=== PATIENT | male | born 1945 | race Caucasian/White ===

== ENCOUNTER 2019-10-17 23:20 | Inpatient (IN) ==
[2019-10-17] MEDS ORDERED: DUONEB (A & A) INH ONE (23:48)
[2019-10-17] MEDS ORDERED: SOLU-MEDROL IV ONE (23:48)
[2019-10-17] MEDS ORDERED: ZOFRAN IV ONE (23:48)
[2019-10-17] MEDS ORDERED: NS 1,000 ML IV ONE (23:48)
[2019-10-17] MEDS ORDERED: TORADOL IV ONE (23:48)
[2019-10-18 00:02] LABS: BE 0.4 mmoll (-3.0-3.0); BLOOD TYPE ARTERIAL; METHB 0.6 % (0.0-1.5); O2(CT) 23.2 mL/dL (15.0-23.0); O2HB 90.4 % (95.0-99.0); PCO2(98.6) 38 mmHg (35-45); PO2(98.6) 58 mmHg (60-100); SAMPLE BLOOD; SAO2 93.3 % (95.0-100.0); THB 18.3 g/dL (11.5-17.4); pH(98.6) 7.42 (7.35-7.45)
[2019-10-18 00:05] LABS: ALLEN TEST YES; MODALITY CANNULA
[2019-10-18] MEDS ORDERED: MORPHINE IV ONE (00:13)
[2019-10-18 00:36] LABS: BASO# 0.01 X1000 (0.0-0.2); BASO% 0.1 % (0.0-0.8); EOS# 0.15 X1000 (0.0-0.7); EOS% 1.8 % (0.0-10.0); HEMATOCRIT 50.4 % (42.0-52.0); HEMOGLOBIN 17.1 g/dL (14.0-18.0); IMM GRAN# 0.02 X1000 (0.0-0.04); IMM GRAN% 0.2 % (0.0-0.5); LYMPH# 1.52 X1000 (1.2-3.4); LYMPH% 17.9 % (20.5-51.1); MCH 32.1 PG (27-31); MCHC 33.9 g/dL (33-37); MCV 94.6 FL (81-99); MONO# 1.08 X1000 (0.11-0.59); MONO% 12.7 % (1.7-9.3); MPV 11.2 FL (7.4-10.4); NEUT# 5.71 X1000 (1.4-6.5); NEUT% 67.3 % (42.2-75.2); PLT 126 X1000 (130-400); RBC 5.33 XMIL (4.7-6.1); RDW 13.8 % (11.5-14.5); WBC 8.49 X1000 (4.8-10.8)
[2019-10-18] MEDS: ZOSYN 4.5 GM in NS 100 ML IV ONE ×2 (00:42→00:51)
[2019-10-18 00:43] LABS: URINE SOURCE CLEAN CATCH
[2019-10-18 00:45] LABS: BILIRUBIN URINE NEGATIVE (NEGATIVE); BLOOD URINE NEGATIVE (NEGATIVE); COLOR YELLOW; GLUCOSE URINE >1000 mg/dL (NEGATIVE); KETONE URINE NEGATIVE (NEGATIVE); LEUKOCYTES URINE NEGATIVE (NEGATIVE); NITRITE URINE NEGATIVE (NEGATIVE); PROTEIN URINE 30 mg/dL (NEGATIVE); SP GRAVITY URINE 1.025; TURBIDITY URINE CLEAR (CLEAR); UROBILINOGEN URINE NORMAL (NORMAL)
[2019-10-18 00:46] LABS: UR EPITHELIAL CELLS <10 /HPF (<10); URINE BACTERIA NEGATIVE /HPF; URINE RBC <10 /HPF (<10); URINE WBC <10 /HPF (<10)
[2019-10-18] MEDS: VANCOMYCIN 1 GM/NS 1 GM/250 ML IVPB IV ONE ×2 (00:50→02:38)
[2019-10-18 00:52] LABS: AGAP 14; ALKALINE PHOSPHATASE 68 U/L (32-122); BUN 19 mg/dL (8-22); CALCIUM 9.5 mg/dL (8.8-10.2); CHLORIDE 102 mmol/L (98-107); CK PROFILE 203 U/L (24-204); COSMO 285; ESTIMATED GFR > 60; GLUCOSE 156 mg/dL (70-104); GOT 32 U/L (10-34); GPT 42 U/L (10-44); INR 0.96; POTASSIUM 4.4 mmol/L (3.5-5.1); PROTIME 13.3 Seconds (11.0-16.0); SODIUM 140 mmol/L (136-145); TCO2 23 mmol/L (25-35); TOTAL PROTEIN 7.5 g/dL (6.3-8.3)
[2019-10-18 00:53] LABS: PTT 23.6 Seconds (22.3-41.8)
[2019-10-18 01:21] LABS: INFLUENZA A NEGATIVE (NEGATIVE); INFLUENZA B NEGATIVE (NEGATIVE)
[2019-10-18] MEDS ORDERED: ZOFRAN ODT PO PRN (04:42)
[2019-10-18] MEDS ORDERED: TYLENOL PO PRN (04:42)
[2019-10-18] MEDS ORDERED: NS 1,000 ML IV ONE (04:42)
--- NOTE | 2019-10-18 04:42 | PROVIDER DOCUMENTATION ---
This chart was entered by Lili Thomas Scribe, acting as scribe for Roc Olivas MD. HPI-Respiratory General - General Chief Complaint: Abdominal Pain Stated Complaint: ABD PAIN Time Seen by Provider: 10/17/19 23:41 Source: RN/, RN notes reviewed Allergies/Adverse Reactions: Patient Allergies Allergy/AdvReac Type Severity Reaction Status Date / Time No Known Allergies Allergy Verified 03/04/19 16:30 Home Medications: Home Medication List Medication Instructions Recorded Confirmed Last Taken Type Losartan Potassium 100 mg PO DAILY 05/27/13 10/17/19 03/22/18 05:00 History Dabrafenib Mesylate [Tafinlar] 75 mg PO DIRECTED 03/17/18 10/17/19 03/23/18 04:00 History Dapagliflozin Propanediol [Farxiga] 5 mg PO DAILY 03/17/18 10/17/19 03/22/18 05:00 History Trametinib Dimethyl Sulfoxide 2 mg PO DAILY 03/17/18 10/17/19 03/23/18 04:00 History [Mekinist] Glimepiride 4 mg PO DAILY 03/23/18 10/17/19 03/22/18 05:00 History - History of Present Illness-Resp Nature of Presenting Problem: pt is a 74yowm presenting to er w/cc rt lower chest and RUQ pain sudden onset after coughing a few hours ago. pt has been sick w/URI past few days. pt had went to his barn and came back from barn when symptoms started. pt is currently on oral chemo for malignant melanoma. no fever but has been fatigued and has had polyuria, dysuria and foul odor when voiding per triage note. pt is a smoker a nd was advised to quit by md. pt is uncomfortable but no acute distress. Severity in ED: reports: moderate Onset/Duration: reports: abrupt, 1-3 hours ago Timing: reports: still present Context: reports: recent URI Cough Quality/Degree: reports: moderate Modifying Factors: improves with: nothing Associated Symptoms: reports: chest pain/soreness, cough, other (fatigue) Review of Systems - Adult - REVIEW OF SYSTEMS - ADULT Constitutional: reports: see alexy CLEANING. denies: chills, fever, night sweats Eyes: reports: no symptoms reported Ears, Nose, Mouth & Throat: reports: no symptoms reported Cardiovascular: reports: see HPI, other (rt lower chest). denies: heart murmur, irregular heart rate, palpitations Respiratory: reports: see HPI, cough Gastrointestinal: reports: see HPI, abdominal pain (ruq). denies: diarrhea, nausea, vomiting Genitourinary: reports: see HPI, dysuria, other (polyuria and foul smelling urine). denies: incontinence, urinary retention, urgency Musculoskeletal: reports: no symptoms reported Integumentary: reports: no symptoms reported Neurological: reports: no symptoms reported Psychiatric: reports: no symptoms reported Endocrine: reports: no symptoms reported Hematologic/Lymphatic: reports: no symptoms reported Allergic/Immunologic: reports: no symptoms reported All Other Systems: Reviewed and Negative Past History - Adult - PAST MEDICAL HISTORY-ADULT Review of Records: reports: Nursing Assessment Review, Medications Reviewed, Social history reviewed & non-contributory. Major Childhood Illnesses: reports: denies history Cardiovascular: reports: denies history, HTN Respiratory: reports: COPD Gastrointestinal: reports: denies history Obstetrical/Gynecological: reports: denies history Genitourinary: reports: kidney stones, prostate cancer Musculoskeletal: reports: denies history Neurological: reports: denies history Endocrine/Immune: reports: Diabetes Other Conditions: reports: denies history - PRIOR SURGERIES/PROCEDURES Surgical/Procedure History: reports: orthopedic (extremity), joint replacement - IMMUNIZATION STATUS Childhood Immunizations: See Nurse Assessment Flu Vaccine: See Nurse Assessment - FAMILY HISTORY Family History: reviewed, not pertinent - SOCIAL HISTORY Smoking: cigarettes, less than 1 pack/day Provider spent 3-5 mins advising pt. on dangers of tobacco.: Discussed manners to quit use, and f/u contacts for add'l counseling. Substance Use: none/never Physical Exam-General - PHYSICAL EXAM-ADULT Initial Vital Signs Reviewed: Yes - CONSTITUTIONAL General Appearance: alert, no apparent distress. negative: lethargic, slow to respond, obtunded - EYES Eyes: PERRL/EOMI - HEAD, EARS, NOSE, MOUTH & THROAT HENMT: normocephalic/atraumatic, moist mucous membranes - NECK Neck: non-tender, full range of motion, supple, normal inspection - RESPIRATORY Respiratory: normal breath sounds, no pleuratic chest pain, no respiratory distress, no accessory muscle use, rhonchi (scattered), other (poor air mvmt, tachypnic). negative: chest non-tender (rt lower chest wall pain on palp), lungs clear, accessory muscle use, crackles, wheezing - CARDIOVASCULAR Cardiovascular: normal peripheral pulses, tachycardia. negative: regular rate, rhythm, extra beats, friction rub, irregularly irregular - GASTROINTESTINAL (ABDOMEN) Abdominal Exam: normal bowel sounds, soft, no organomegaly, no pulsatile mass, tenderness (ruq and rt flank on palp). negative: non tender, distended, guarding, rigid - MUSCULOSKELETAL Back Exam: normal inspection, no CVA tenderness Extremity: normal range of motion, non-tender, normal inspection - SKIN Integumentary: normal color, normal turgor, warm/dry - NEUROLOGIC Neurologic: grossly normal, no motor/sensory deficits - PSYCHIATRIC Psych/Mental Status: normal mood/affect, normal thought content, normal thought process, oriented x 3 Progress - PLAN OF CARE/RESULTS Progress/Plan/Lab Results: Vital Signs - 8 hr 10/17/19 23:23 10/18/19 00:16 Temperature 98.5 F Pulse Rate 97 H 97 H Respiratory Rate 20 18 Blood Pressure 134/83 O2 Sat by Pulse Oximetry 90 L 92 L Laboratory Results - last 24 hr 10/17/19 10/18/19 10/18/19 23:55 00:16 00:16 WBC 8.49 RBC 5.33 Hgb 17.1 Hct 50.4 MCV 94.6 MCH 32.1 H MCHC 33.9 RDW Std Deviation 13.8 Plt Count 126 L MPV 11.2 H Immature Gran % (Auto) 0.2 Neut % (Auto) 67.3 Lymph % (Auto) 17.9 L [place] % (Auto) 12.7 H Eos % (Auto) 1.8 Baso % (Auto) 0.1 Immature Gran # (Auto) 0.02 Neut # (Auto) 5.71 Lymph # (Auto) 1.52 [place] # (Auto) 1.08 H Eos # (Auto) 0.15 Baso # (Auto) 0.01 PT INR PTT (Actin FS) Specimen Type ARTERIAL Sample Site L RADIAL pH 7.42 pCO2 38 pO2 58 L HCO3 25.0 Base Excess 0.4 Oxyhemoglobin 90.4 L ABG O2 Sat (Calculated) 23.2 H ABG O2 Saturation 93.3 L ABG Carboxyhemoglobin 2.50 ABG Methemoglobin 0.6 Luis Test YES A-a O2 Difference 94.0 Total Hemoglobin 18.3 H Lactate 1.20 Liter Flow 2.0 Blood Gas Modality CANNULA FiO2 % 28.0 Sodium 140 Potassium 4.4 Chloride 102 Carbon Dioxide 23 L Anion Gap 14 BUN 19 Creatinine 1.0 Estimated GFR/1.73 m2 > 60 BUN/Creatinine Ratio 19 Glucose 156 H Calculated Osmolality 285 Calcium 9.5 Magnesium 2.0 Total Bilirubin 0.50 AST 32 ALT 42 Alkaline Phosphatase 68 Creatine Kinase 203 Troponin T High Sens Slj-A-Dlkvcfvwzcg Pept Total Protein 7.5 Albumin 4.0 Globulin 4.0 Albumin/Globulin Ratio 1.0 Lipase Plasma Lactate Urine Source Urine Color Urine Turbidity Urine pH Ur Specific [place] Urine Protein Ur Glucose (Stick) Ur Ketones (Stick) Urine Blood Urine Nitrite Urine Bilirubin Urobilinogen Dipstick Urine Leukocytes Urine WBC (Auto) Urine RBC (Auto) U Epithel Cells (Auto) Urine Bacteria (Auto) Influenza A (Rapid) Influenza B (Rapid) 10/18/19 10/18/19 10/18/19 00:16 00:16 00:16 WBC RBC Hgb Hct MCV MCH MCHC RDW Std Deviation Plt Count MPV Immature Gran % (Auto) Neut % (Auto) Lymph % (Auto) [place] % (Auto) Eos % (Auto) Baso % (Auto) Immature Gran # (Auto) Neut # (Auto) Lymph # (Auto) [place] # (Auto) Eos # (Auto) Baso # (Auto) PT 13.3 INR 0.96 PTT (Actin FS) 23.6 Specimen Type Sample Site pH pCO2 pO2 HCO3 Base Excess Oxyhemoglobin ABG O2 Sat (Calculated) ABG O2 Saturation ABG Carboxyhemoglobin ABG Methemoglobin Luis Test A-a O2 Difference Total Hemoglobin Lactate Liter Flow Blood Gas Modality FiO2 % Sodium Potassium Chloride Carbon Dioxide Anion Gap BUN Creatinine Estimated GFR/1.73 m2 BUN/Creatinine Ratio Glucose Calculated Osmolality Calcium Magnesium Total Bilirubin AST ALT Alkaline Phosphatase Creatine Kinase Troponin T High Sens Uei-T-Mwhqrctuoyg Pept 7 Total Protein Albumin Globulin Albumin/Globulin Ratio Lipase Plasma Lactate 1.2 Urine Source Urine Color Urine Turbidity Urine pH Ur Specific [place] Urine Protein Ur Glucose (Stick) Ur Ketones (Stick) Urine Blood Urine Nitrite Urine Bilirubin Urobilinogen Dipstick Urine Leukocytes Urine WBC (Auto) Urine RBC (Auto) U Epithel Cells (Auto) Urine Bacteria (Auto) Influenza A (Rapid) Influenza B (Rapid) 10/18/19 10/18/19 10/18/19 00:16 00:16 00:25 WBC RBC Hgb Hct MCV MCH MCHC RDW Std Deviation Plt Count MPV Immature Gran % (Auto) Neut % (Auto) Lymph % (Auto) [place] % (Auto) Eos % (Auto) Baso % (Auto) Immature Gran # (Auto) Neut # (Auto) Lymph # (Auto) [place] # (Auto) Eos # (Auto) Baso # (Auto) PT INR PTT (Actin FS) Specimen Type Sample Site pH pCO2 pO2 HCO3 Base Excess Oxyhemoglobin ABG O2 Sat (Calculated) ABG O2 Saturation ABG Carboxyhemoglobin ABG Methemoglobin Luis Test A-a O2 Difference Total Hemoglobin Lactate Liter Flow Blood Gas Modality FiO2 % Sodium Potassium Chloride Carbon Dioxide Anion Gap BUN Creatinine Estimated GFR/1.73 m2 BUN/Creatinine Ratio Glucose Calculated Osmolality Calcium Magnesium Total Bilirubin AST ALT Alkaline Phosphatase Creatine Kinase Troponin T High Sens 15 Ujn-V-Gadewmodqrr Pept Total Protein Albumin Globulin Albumin/Globulin Ratio Lipase 41 Plasma Lactate Urine Source Urine Color Urine Turbidity Urine pH Ur Specific [place] Urine Protein Ur Glucose (Stick) Ur Ketones (Stick) Urine Blood Urine Nitrite Urine Bilirubin Urobilinogen Dipstick Urine Leukocytes Urine WBC (Auto) Urine RBC (Auto) U Epithel Cells (Auto) Urine Bacteria (Auto) Influenza A (Rapid) NEGATIVE Influenza B (Rapid) NEGATIVE 10/18/19 00:34 WBC RBC Hgb Hct MCV MCH MCHC RDW Std Deviation Plt Count MPV Immature Gran % (Auto) Neut % (Auto) Lymph % (Auto) [place] % (Auto) Eos % (Auto) Baso % (Auto) Immature Gran # (Auto) Neut # (Auto) Lymph # (Auto) [place] # (Auto) Eos # (Auto) Baso # (Auto) PT INR PTT (Actin FS) Specimen Type Sample Site pH pCO2 pO2 HCO3 Base Excess Oxyhemoglobin ABG O2 Sat (Calculated) ABG O2 Saturation ABG Carboxyhemoglobin ABG Methemoglobin Luis Test A-a O2 Difference Total Hemoglobin Lactate Liter Flow Blood Gas Modality FiO2 % Sodium Potassium Chloride Carbon Dioxide Anion Gap BUN Creatinine Estimated GFR/1.73 m2 BUN/Creatinine Ratio Glucose Calculated Osmolality Calcium Magnesium Total Bilirubin AST ALT Alkaline Phosphatase Creatine Kinase Troponin T High Sens Ufa-P-Lpzvoshskyn Pept Total Protein Albumin Globulin Albumin/Globulin Ratio Lipase Plasma Lactate Urine Source CLEAN CATCH Urine Color YELLOW Urine Turbidity CLEAR Urine pH 6.0 Ur Specific [place] 1.025 Urine Protein 30 A Ur Glucose (Stick) >1000 A Ur Ketones (Stick) NEGATIVE Urine Blood NEGATIVE Urine Nitrite NEGATIVE Urine Bilirubin NEGATIVE Urobilinogen Dipstick NORMAL Urine Leukocytes NEGATIVE Urine WBC (Auto) <10 Urine RBC (Auto) <10 U Epithel Cells (Auto) <10 Urine Bacteria (Auto) NEGATIVE Influenza A (Rapid) Influenza B (Rapid) Orders Category Date Time Status Cardiac Monitoring DIRECTED Care 10/17/19 23:47 Active IV Insertion ORDERED Care 10/17/19 23:47 Completed Notify MD of + Sepsis Screen NOW Care 10/17/19 23:[address] THORAX/ABD/PELVIS W/CON [CT] Stat Exams 10/18/19 00:57 Taken cxr [CHEST-PORTABLE] [RAD] Stat Exams 10/17/19 23:31 Taken ABG [RESP] Routine Lab 10/17/19 23:55 Completed BLOOD CULTURE [BLDCUL] Stat Lab 10/18/19 00:19 Ordered BNP [PRO B-NATRIURETIC PEPTIDE] Stat Lab 10/18/19 00:16 Completed CBC WITH ELECTRONIC DIFF [HEME] Stat Lab 10/18/19 00:16 Completed CK PROFILE [SP CHEM] Stat Lab 10/18/19 00:16 Completed COMPREHENSIVE METABOLIC PANEL [CHEM] Stat Lab 10/18/19 00:[address] Stat Lab 10/18/19 00:25 Completed LACTATE, PLASMA [CHEM] Lab 10/18/19 02:47 Uncollected LACTATE, PLASMA [CHEM] Lab 10/18/19 05:47 Uncollected LACTATE, PLASMA [CHEM] Q3H Lab 10/18/19 00:16 Completed LIPASE [CHEM] Stat Lab 10/18/19 00:16 Completed MAGNESIUM [CHEM] Stat Lab 10/18/19 00:16 Completed PROTIME WITH INR [COAG] Stat Lab 10/18/19 00:16 Completed PTT [COAG] Stat Lab 10/18/19 00:16 Completed TROPONIN T HIGH SENSITIVITY Stat Lab 10/18/19 00:16 Completed URINALYSIS W/POSS RFLX CULT [URINALYSIS] Stat Lab 10/18/19 00:34 Completed 0.9% Sodium Chloride Inj [Ns] 1,000 ml Med 10/17/19 23:48 Discontinued IV 999 mls/hr Albuterol 2.5MG/Ipratrop 0.5MG [Duoneb (A & A)] Med 10/17/19 23:48 Discontinued 3 ml INH NOW ONE Ketorolac [Toradol] Med 10/17/19 23:48 Discontinued 15 mg IV NOW ONE Methylprednisolone Sod Succ [Solu-Medrol] Med 10/17/19 23:48 Discontinued 125 mg IV NOW ONE Morphine Med 10/18/19 00:13 Discontinued 2 mg IV NOW ONE Ondansetron [Zofran] Med 10/17/19 23:48 Discontinued 4 mg IV NOW ONE Piperacillin/Tazobactam [Zosyn] 4.5 gm Med 10/17/19 23:50 Discontinued 0.9% Sodium Chloride Inj [Ns] 100 ml IV NOW Vancomycin 1 gm/Ns Med 10/17/19 23:48 Discontinued 1 gm in 250 ml IV NOW Aerosol Treatments Routine Oth 10/17/19 23:48 Completed Aerosol Treatments Stat Oth 10/17/19 23:48 Completed Oxygen Device Stat Oth 10/17/19 23:47 Active Result Diagrams: 10/18/19 00:16 10/18/19 00:16 - REASSESSMENT Reassessment #1 Time Reassessed: 04:35 Status: improving (but still hypoxic on room air. Patient does not have severe sepsis or septic shock. Has COPD exacerbation. Given multiple IVF, pain meds, Vanc/Zosyn, solumedrol, and neb treatments. 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 Penile prosthesis) - CONSULTS/PCP/HOSPITALIST Notification #1 *Consult/PCP/Hospitalist*: [place] Time Discussed: 04:39 Consult Disposition: Admit #2 Consult: Kristin Time Discussed: 04:41 Consult Disposition: Admit Departure - Departure Date of Disposition Decision: 10/18/19 Time of Disposition Decision: 04:39 DIAGNOSIS: Decompensated COPD with exacerbation (chronic obstructive pulmonary disease), Hypoxemia, Right-sided abdominal pain of unknown etiology Sepsis without acute organ dysfunction Qualifiers: Sepsis type: sepsis due to unspecified organism Qualified Code(s): A41.9 - Sepsis, unspecified organism Disposition: ADMITTED INPATIENT 09 Certified Medical Emergency: Emergent Condition: Stable Referrals and Follow-Ups: Billy Foster MD [Primary Care Provider] - - Critical Care Note This patient required my direct & personal management of CC.: Yes Total Time (mins): 40 Critical Care Statement: This patient required my direct personal management to treat or rule out processes, the absence of which, could potentiallly result in sudden, clinically significant life or limb threatening deterioration. Attestation - Physician/ BEVERLEY Attestation Patient care was provided by Advanced Practice Provider:: No The physician spent face to face time with patient:: Yes Advanced Practice Provider documentation review:: Supervising physician onsite and consulted in the evaluation and care of this patient. The physician did have a face to face encounter with the patient. This chart was documented by the indicated scribe, (Lili Thomas, [place]) and accurately reflects the services I performed and decisions made by me, Roc Olivas MD, as attested by the provider's signature.
[2019-10-18] MEDS: MORPHINE IV PRN ×2 (05:16→07:46)
[2019-10-18] MEDS: SOLU-MEDROL IV SCH ×2 (07:41→11:42)
--- NOTE | 2019-10-18 07:43 | Diag Imaging Result Doc PS360 ---
CHEST-PORTABLE - 10/17/2019 INDICATION: SOB COMPARISON: 12/02/2018 FINDINGS: There are stable surgical clips in the right supraclavicular fossa. The lungs are clear. Heart size is normal. No pneumothorax or pleural effusion. IMPRESSION: Negative exam. Electronically signed by Fox Villavicencio 10/18/2019 7:41 AM
--- NOTE | 2019-10-18 08:22 | Diag Imaging Result Doc PS360 ---
EXAM: CT THORAX/ABD/PELVIS W/CON INDICATION: severe right sided chest/abdominal pain TECHNIQUE: This exam was performed using automated exposure control, adjustment of mA or kV according to patient size, and/or use of iterative reconstruction technique. COMPARISON: CT abdomen and pelvis dated 03/04/2019. No prior CT chest is available for comparison. FINDINGS: CHEST: There is bilateral dependent atelectasis at the lung bases. The lungs are clear, otherwise. There is no pleural fluid collection and no pneumothorax. There is no cardiomegaly. There are a few borderline prominent right hilar lymph nodes that are nonspecific. There is mild coronary artery atherosclerotic calcification. There are a few old healed rib fractures on the left. There is no evidence of acute osseous abnormality. ABDOMEN/PELVIS: The gallbladder, liver, spleen, pancreas, and adrenal glands are grossly unremarkable. There is a tiny right renal cortical cyst. The kidneys are grossly unremarkable, otherwise. The urinary bladder appears normal. A penile prosthesis is noted incidentally. No focal bowel wall thickening or bowel obstruction is identified. The stomach, small bowel, and colon are essentially unremarkable. The appendix is normal. No focal inflammatory changes, free abdominal gas, or free fluid is identified. There has been a prior right hip arthroplasty. There are degenerative changes involving the spine. There is no evidence of acute osseous abnormality. IMPRESSION: 1.Bibasilar dependent atelectasis. No definite acute chest pathology, otherwise. 2.Incidental/nonacute findings detailed above. No evidence of acute pathology involving the abdomen or pelvis. Electronically signed by Oumar Thomas 10/18/2019 8:19 AM
[2019-10-18] MEDS: DUONEB (A & A) INH SCH ×3 (08:28→23:00)
[2019-10-18] MEDS: ZOSYN 4.5 GM in NS 100 ML IV SCH ×2 (09:30→12:48)
--- NOTE | 2019-10-18 09:41 | EKG Report ---
Test Performed on : 10/18/2019 04:48:14 AM Test Reason : ER Blood Pressure : / mmHG Vent. Rate : 085 BPM Atrial Rate : 085 BPM P-R Int : 206 ms QRS Dur : 088 ms QT Int : 356 ms P-R-T Axes : 034 024 041 degrees QTc Int : 423 ms Normal sinus rhythm. Low voltage QRS Cannot rule out Anteroseptal infarct (cited on or before 17-MAR-2018) Abnormal ECG When compared with ECG of 17-MAR-2018 10:06, Questionable change in initial forces of Anterior leads Unconfirmed Result
--- NOTE | 2019-10-18 16:12 | Vascular Study Report ---
EXAM: Venous U/S Bilateral Legs INDICATION: sob TECHNIQUE: COMPARISON: None. FINDINGS: There are no discrete filling defects and there is normal Doppler flow, compressibility, and augmentation involving the deep venous systems of the lower extremities on the left and the right. Both the right and left greater saphenous veins also appear to be patent. IMPRESSION: No evidence of DVT. Electronically signed by Oumar Thomas 10/18/2019 4:09 PM
[2019-10-18] MEDS ORDERED: NORCO-7.5 PO ONE (18:16)
[2019-10-18] MEDS ORDERED: VANCOMYCIN IV PER PHARMACY MISC SCH (21:45)
[2019-10-18] MEDS ORDERED: PNEUMOVAX 23 IM ONE (22:17)
[2019-10-18] MEDS: VANCOMYCIN 1 GM/NS 1 GM/250 ML IVPB IV SCH (22:26)
[2019-10-19] MEDS: VANCOMYCIN 1 GM/NS 1 GM/250 ML IVPB IV SCH (02:08)
[2019-10-19] MEDS: DUONEB (A & A) INH SCH ×3 (03:18→16:19)
[2019-10-19] MEDS ORDERED: TYLENOL PO PRN (03:30)
--- NOTE | 2019-10-19 03:41 | EKG Report ---
Test Performed on : 10/19/2019 03:33:14 AM Test Reason : pain Blood Pressure : / mmHG Vent. Rate : 086 BPM Atrial Rate : 086 BPM P-R Int : 200 ms QRS Dur : 102 ms QT Int : 376 ms P-R-T Axes : 068 043 050 degrees QTc Int : 449 ms Normal sinus rhythm. Low voltage QRS Borderline ECG When compared with ECG of 18-OCT-2019 04:48, (Unconfirmed) Minimal criteria for Anteroseptal infarct are no longer present Confirmed by Billy Foster MD ([id number]) on 10/26/2019 6:33:28 AM
[2019-10-19 09:05] LABS: BASO# 0.02 X1000 (0.0-0.2); BASO% 0.2 % (0.0-0.8); EOS# 0.02 X1000 (0.0-0.7); EOS% 0.2 % (0.0-10.0); HEMATOCRIT 47.3 % (42.0-52.0); HEMOGLOBIN 15.7 g/dL (14.0-18.0); IMM GRAN# 0.02 X1000 (0.0-0.04); IMM GRAN% 0.2 % (0.0-0.5); LYMPH# 1.21 X1000 (1.2-3.4); LYMPH% 12.7 % (20.5-51.1); MCHC 33.2 g/dL (33-37); MCV 96.3 FL (81-99); MONO# 0.92 X1000 (0.11-0.59); MONO% 9.7 % (1.7-9.3); MPV 11.1 FL (7.4-10.4); NEUT# 7.31 X1000 (1.4-6.5); PLT 141 X1000 (130-400); RBC 4.91 XMIL (4.7-6.1); RDW 13.7 % (11.5-14.5)
[2019-10-19 09:17] LABS: BLOOD TYPE ARTERIAL; HCO3-(ACT) 26.2 mmoll (20.0-26.0); METHB 0.6 % (0.0-1.5); O2(CT) 20.5 mL/dL (15.0-23.0); PCO2(98.6) 49 mmHg (35-45); PO2(98.6) 51 mmHg (60-100); SAMPLE BLOOD; SAO2 90.9 % (95.0-100.0); THB 16.5 g/dL (11.5-17.4); pH(98.6) 7.37 (7.35-7.45)
[2019-10-19 09:23] LABS: ALLEN TEST YES; MODALITY ROOM AIR; O2HB 88.6 % (95.0-99.0)
[2019-10-19 09:37] LABS: AGAP 10; ALBUMIN 3.7 g/dL (3.5-5.0); ALKALINE PHOSPHATASE 58 U/L (32-122); BUN 20 mg/dL (8-22); CALCIUM 8.9 mg/dL (8.8-10.2); CHLORIDE 105 mmol/L (98-107); COSMO 290; CREATININE 0.9 mg/dL (0.7-1.2); ESTIMATED GFR > 60; GLUCOSE 201 mg/dL (70-104); GOT 25 U/L (10-34); GPT 31 U/L (10-44); SODIUM 141 mmol/L (136-145); TCO2 26 mmol/L (25-35); TOTAL PROTEIN 7.2 g/dL (6.3-8.3)
[2019-10-19] MEDS ORDERED: MORPHINE IV ONE (10:43)
[2019-10-19] MEDS ORDERED: ROCEPHIN 1 GM in NS 50 ML IV SCH (13:00)
--- NOTE | 2019-10-19 13:41 | HISTORY AND PHYSICAL ---
HISTORY OF PRESENT ILLNESS: This is a 74-year-old male we see here in the office. When he presented to the ER, he described a chief complaint of right lower chest and right upper quadrant pain, sudden onset after coughing a few hours prior to his presentation. He has been sick with an upper respiratory for the past few days. He had gone to his barn and came back from the barn when he suddenly had these symptoms start. He is currently on chemotherapy for malignant melanoma. No fever but has been fatigued and has had polyuria, dysuria, foul odor when voiding. The patient is an ongoing smoker. So his symptoms started 1 to 3 hours ago but more likely a week ago when he developed this cough that he has been suffering with. So he presented to the ER. He had a temperature of 98.5, pulse of 97, respiratory rate 20, blood pressure 134/83, and alert and oriented of 90%. Followup O2 saturation was 92%. His blood gases showed the pH was 7.42, pCO2 of 38, pO2 of 58 on 2 L. His carboxyhemoglobin level was 2.5. His comp was within normal limits. He had a CK a little bit elevated at 203. He had some x-rays. His x-rays and additional labs include an EKG which had a heart rate of 85, normal sinus rhythm, poor R wave progression, first degree AV block. His home medicines included losartan 100 daily, Tafinlar 750 p.o. for his multiple myeloma, Farxiga 5 mg daily, a drug called Mekinist 2 mg p.o. daily, and glimepiride 4 daily. His x-ray showed clear lungs. Heart size was normal. No pleural effusions. He had a venous study of his legs bilaterally which was negative. He had a CT for thorax, abdomen and pelvis with contrast for severe right-sided chest pain and abdominal pain. His chest x-ray showed bilateral dependent atelectasis at the lung bases. The lungs are clear otherwise. There is no pleural fluid collection and no pneumothorax. There is no cardiomegaly. There are a few borderline prominent right hilar lymph nodes that are nonspecific. There is mild coronary artery atherosclerosis demonstrated by calcifications. There are old healed fractures on the left. There is no of acute osseous abnormality. Abdomen, pelvis, gallbladder, liver, spleen, pancreas and adrenal glands are grossly unremarkable. There are tiny right renal cortical cysts. The kidneys are grossly unremarkable otherwise. The urinary bladder appears normal. A penile prosthesis is noted incidentally. No focal bowel thickening or bowel obstruction identified. The stomach, small bowel and colon are unremarkable. The appendix is normal. No focal inflammatory changes, free abdominal gas or free fluid identified. There has been a previous prior right hip arthroplasty. There are degenerative changes involving the spine. There is no evidence of acute osseous abnormalities. Impression is bibasilar dependent atelectasis. No definite acute chest pathology otherwise. No evidence of pathology involving the abdomen or pelvis. His laboratory data included CBC with white count 8049, hematocrit 50, platelet count 126, differential was normal diff. He had a D-dimer of 3.05. Nothing seen grossly on his chest x-ray and nothing in his legs. His blood gases showed pH was 7.42, pCO2 was 38, pO2 was 58 on 2 L. He has no history of requiring oxygen in the past. His carboxyhemoglobin was 2.5. His electrolytes showed sodium 140, potassium 4.4, chloride 102, carbon dioxide 23, BUN of 19, creatinine 1, GFR greater than 60, glucose 156, calcium 9.5, magnesium 2. AST, ALT and alkaline phosphatase negative. Creatinine slightly elevated at 203. BNP is 7. Troponin I sensitivity 14. Plasma lactate 1.2 and 1.5. Lipase was 41. Urine with 4+ glucose, protein trace. Negative serologies, negative for flu. ALLERGIES: He has no known allergies. PAST MEDICAL HISTORY: He has diabetes and hypertension along with a past history of malignant melanoma for which he is currently being treated. He has had the previous history of hypertension. He has COPD secondary to his previous smoking. Genitourinary: He has had kidney stones and previous prostate cancer. He has history of diabetes and history of malignant melanoma. He has had a history of joint replacement. He smokes less than a pack a day but has been smoking all of his life. REVIEW OF SYSTEMS: He has just generally been fatigued. Denies fever, chills or night sweats. Eyes: No symptoms noted. Ears, nose and throat were negative. Cardiovascular: Reports just right lower chest pain but otherwise denies murmur, heart rate problems or palpitations. He is a smoker and has a chronic cough. Gastrointestinal: He has abdominal pain in right upper quadrant. Denies diarrhea, nausea and vomiting. Genitourinary: No dysuria, polyuria or foul smelling urine. Denies incontinence, urinary retention or urgency. Musculoskeletal: Negative. Skin: No rashes or lesions identified. Neurologic: No asymmetric findings. Psychiatric: Negative. Stubborn. Endocrine: Has diabetes, no significant complications. Treated with oral agents. PHYSICAL EXAMINATION: GENERAL APPEARANCE: No distress. HEENT: Eyes are PERRLA. EOMs intact. Sclerae clear. Fundi benign. Nares patent. Oropharynx is negative. Moist mucous membranes. NECK: Supple. No palpable lymphadenopathy. RESPIRATORY: He has normal breath sounds. No pleuritic chest pain. No respiratory distress. No accessory muscle use. Rhonchi scattered. CARDIOVASCULAR: He had a regular rhythm and rate. Occasional ectopic. No friction rub. GASTROINTESTINAL: Normal bowel sounds. Soft. No organomegaly. No pulsatile masses. Tenderness in the right upper quadrant and right flank on palpation. MUSCULOSKELETAL: Normal range of motion. Nontender. Normal inspection of joints. No CVA tenderness. SKIN: Clear. NEUROLOGICAL: No focal deficits. PSYCHIATRIC: Oriented x3. Insisted on leaving in spite of his condition. We explained the problem with his pO2. IMPRESSION: 1. Sudden onset of some right-sided flank pain. 2. Chronic obstructive pulmonary disease history with some current respiratory failure issues. 3. Chronic obstructive pulmonary disease secondary to smoking. 4. History of prostate cancer that has been resected. 5. History of melanoma that has been treated and being currently managed by chemotherapy. PLAN: He was admitted primarily because he could not maintain an O2 with a pO2 of 51. So he has agreed to go in the hospital and let us make arrangements for him to have some O2 at home. We are also interested in the possibility of him having some recurrence of his melanoma. cc: Billy Foster MD
[2019-10-19 17:35] VITALS: BP 131/83
[2019-10-19] MEDS ORDERED: VANCOMYCIN 2,000 MG in NS 500 ML IV SCH (20:00)
--- NOTE | 2019-10-20 11:22 | ECHO REPORT ---
ORDER DATE: 10/18/2019 MEASUREMENTS: Septal thickness 1.1, left ventricular internal diameter in diastole 5.2, posterior wall thickness 1.1, left ventricular internal diameter in systole 3.2, left atrium 4.2, aortic root 3.6. SUMMARY: 1. Technically difficult study due to limited acoustic window quality. 2. The aortic valve is trileaflet and opens normally on 2-dimensional images. The peak gradient across the aortic valve is approximately 11 mmHg. Mitral and tricuspid valves are without evidence of structural abnormality, while pulmonic valve is not well demonstrated. The aortic root is normal size. 3. Normal left ventricular dimensions demonstrated. The estimated left ventricular ejection fraction appears to be at least 65%. No regional wall abnormalities are evident. Doppler suggests grade 1 left ventricular diastolic dysfunction. The left atrium is mildly enlarged. The right atrium and right ventricle are grossly normal in size with grossly preserved right ventricular systolic function. 4. No pericardial effusion. 5. Appearance of the inferior vena cava suggests normal central venous pressure. CONCLUSIONS: 1. Technically difficult study. 2. No significant valvular abnormality evident. 3. Normal left ventricular systolic function without regional wall motion abnormality evident. 4. Grade 1 left ventricular diastolic dysfunction suggested. 5. Mild left atrial enlargement. cc: MD Billy Wade MD
--- NOTE | 2019-11-10 20:59 | HISTORY AND PHYSICAL ---
HISTORY OF PRESENT ILLNESS: This is a 74-year-old patient of mine from the office who presented to the emergency room complaining of abdominal pain. That was his initial complaint. He showed up on 10/17/2019. 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 The patient has been sick with an upper respiratory infection that he has been taking care of. He is a smoker. The patient had gone to his barn and came back from the barn when the symptoms started. The patient has been coughing quite a bit but currently is on oral chemotherapy for malignant melanoma. He denied any fever but has been fatigued and is having polyuria, dysuria, and foul odor urine when voiding. He is, as I said, a smoker and continues to smoke. The patient is uncomfortable but in no acute distress. In the ER he is rated as having moderate pain that began approximately somewhere between one and three hours prior to presentation and is still present in the setting of a recent upper respiratory infection. He has a significant cough, nothing much comes up, no blood for sure. So, he was seen in the ER by the ER physician and was subsequently admitted. ALLERGIES: He has no allergies. MEDICATIONS: Losartan 100 mg p.o. daily, Tafinlar 75 mg as directed for his melanoma, Farxiga 5 mg daily, and Mekinist for his melanoma and he takes glimepiride 4 mg p.o. daily. REVIEW OF SYSTEMS: He denies any significant fever, chills, night sweats lately. He has no issues with his eyes, visual drainage, or irritation. Ears, nose, and throat: He denies any pharyngitis, sinusitis, otitis. Cardiovascular: He has right lower chest pain, somewhat aggravated by palpation and taking a deep breath. Denies palpitations or central chest pain, tightness, heaviness, or fullness. Respiratory: He is simply coughing and having abdominal pain during an episode of coughing that has persisted. He denies nausea, diarrhea, and vomiting. Genitourinary: He has dysuria, polyuria, and foul smelling urine. He denies incontinence, urinary retention, or urgency. Musculoskeletal: No symptoms reported other than flank pain on the right. Skin: No lesions were appreciated. No rashes. No nodules. Neurological: No focal neurological deficits. No epilepsy. No headaches. No migraines. Psychiatric: Negative. Endocrine: He has diabetes but no significant problems. Hematological/Lymphatics: Negative for bleeding, clotting. Allergies: Negative. PAST MEDICAL HISTORY: He has a history of hypertension and COPD secondary to smoking. He has had kidney stones. He has had prostate cancer in the past. He has diabetes. PAST SURGICAL HISTORY: Surgeries for orthopedic issues. SOCIAL HISTORY: He lives with his . He smokes less than a pack of cigarettes a day. PHYSICAL EXAMINATION: VITAL SIGNS: His temperature on admission was 98.5, pulse 97, respiratory rate 20, blood pressure 134/83, O2 saturation was 90%. HEENT: Head was normocephalic, atraumatic. Eyes, ears, and nose were clear. PERRL. SC were negative. Moist mucous membranes. Throat was negative. NECK: Supple. Nontender. Full range of motion. CHEST: Normal breath sounds. No pleuritic chest pain. No respiratory distress. No accessory muscle use. He had some scattered rhonchi. Poor air movement. Tachypneic. Chest was nontender in the right lower chest wall unless you palpated it. Lungs were clear. No crackles. No wheezes. CARDIOVASCULAR: He had a regular rhythm and rate. No murmurs, gallops, or clicks. ABDOMEN: No hepatosplenomegaly. No CVA tenderness. Tenderness in the right upper quadrant and right flank on palpation. MUSCULOSKELETAL: Normal inspection. Normal range of motion. Nontender. SKIN: Negative for lesions. NEUROLOGICAL: Grossly normal. No motor or sensory deficits. PSYCHIATRIC: Negative. LABORATORY DATA: His white count on admission was 8490, hematocrit was 50.4, platelet count was 128,000. Differential was relatively normal differential. Blood gases, pH 7.42, pCO2 38, pO2 58, on 2 L FIO2 28%, carboxyhemoglobin was 2.5. Sodium 140, potassium 4.4, chloride 102, carbon dioxide 23, BUN 19, creatinine 1, GFR greater than 60, glucose 156, calcium 9.5, magnesium 2, total bilirubin 0.5, AST 32, ALT 42, alkaline phosphatase 68. CK 203. Total protein 7.5. Albumin 3.4. Globulin 4. PT 0.96. PTT 23.6. Plasma lactate 1.2. Lipase 41. Flu negative A and B. Urinalysis with pH 6, specific gravity 1.025, glucose greater than 1000, negative for ketones, blood, nitrites, or bilirubin; negative for leukocytes; negative for bacteria. IMAGING: In the ER he had a CT of his chest done. His initial reports in the ER showed chest x- ray that was read as normal. He had a CT later and the CT showed lungs were clear, no pleural fluid collections, or pneumothorax, there is no cardiomegaly, borderline lymph nodes nonspecific, coronary artery calcifications, a few old healed rib fractures on the left, there is no evidence of osseous abnormalities. Abdomen, gallbladder, liver, spleen, pancreas, and adrenal glands unremarkable. Right renal cortical cyst. The kidneys were grossly unremarkable. The urinary bladder appeared normal. Penile prosthesis was noted incidentally. No focal bowel wall thickening or bowel obstruction is identified. The stomach, small bowel, and colon were essentially unremarkable. The appendix is normal. No focal inflammatory changes or free abdominal gas or free air. There has been a prior right hip arthroplasty. There are degenerative changes involving the spine. There is no evidence of any abnormality. He was treated with pain medicines and Zosyn empirically and vancomycin. On admission he was placed on multiple antibiotics pending further data base. cc: Billy Foster MD
--- NOTE | 2019-11-11 16:26 | DISCHARGE SUMMARY ---
ADMISSION DATE: 10/18/2019 DISCHARGE DATE: 10/19/2019 HISTORY OF PRESENT ILLNESS: This 74-year-old patient is seen in the office. He has had some respiratory problems and presented to the emergency room complaining that he basically had been sick for a few days and had done some coughing. He had some right lower chest and some right upper quadrant pain that suddenly developed during a coughing presentation. He has a history of malignant melanoma and prostate cancer. He is on medications orally for melanoma. The patient has a history of smoking for quite some time. He is an ongoing smoker. He has some COPD. During our evaluation on him on two liters, his blood gases showed a pH of 7.42, pCO2 of 38, and pO2 of 58. His carboxyhemoglobin was 2.5. We felt like he needed to be admitted because he could not get oxygen at home at the time he was in the ER. He finally begrudgingly agreed. HOSPITAL COURSE: While here, he had a CT of the thorax, abdomen, and pelvis. His chest x-ray showed bilateral dependent atelectasis, otherwise clear. No pneumo, no fluid collection, no cardiomegaly. There was borderline lymph nodes evident. There were old healed fractures on the left. Otherwise, it was generally unremarkable. She was treated in the hospital with nebulizer treatments and medication and the following day we were able to discharge him. DISCHARGE DIAGNOSES: 1. Chronic obstructive pulmonary disease. 2. Malignant melanoma. 3. Prostate cancer. 4. Hypertension. DISCHARGE INSTRUCTIONS: Placed him on home O2 and some nebulizer treatment. We will follow him and see how his need for O2 goes. cc: Billy Foster MD
== END 2019-10-19 19:15 | disposition home or self-care (01) | DRG 192 ==
LOC: P.ED 23:20 → P.EDIPHOLD 10-18 15:30
PROVIDERS: ADMIT Internal Medicine; ATTEND Internal Medicine